=== PATIENT | male | born 1935 | race Native Hawaiian/Other Pacific Islander ===

== ENCOUNTER → 2016-05-13 16:46 | Emergency (ER) | payer MEDICARE ==
[2014-02-06 15:47] LABS: Eosinophils % (Auto) 2.5 % (0.0-4.3); Hematocrit 48.3 % (35.5-45.6); Hemoglobin 16.6 gm/dl (11.8-15.2); Mean Corpuscular HGB Conc 34 % (32-34); Mean Corpuscular Hemoglobin 32 pg (28-32); Mean Corpuscular Volume 95 fl (84-94); Red Blood Count 5.11 M/mm3 (3.65-5.03); Red Cell Distribution Width 13.3 % (13.2-15.2); White Blood Count 8.4 K/mm3 (4.5-11.0)
[2014-02-06 16:09] LABS: Anion Gap 10 mmol/L; BUN/Creatinine Ratio 15.83; Blood Urea Nitrogen 19 mg/dL (9-20); Calcium 9.1 mg/dL (8.4-10.2); Carbon Dioxide 26 mmol/L (22-30); Chloride 103 mmol/L (98-107); Creatine Kinase 57 units/L (55-170); Creatine Kinase MB 1.3 ng/mL (0.0-4.0); Glucose 170 mg/dL (75-100); Sodium 135 mmol/L (137-145)
[2014-02-06 16:10] LABS: Platelet Count 173 K/mm3 (140-440)
[2014-02-06 16:52] LABS: Potassium 3.7 mmol/L (3.6-5.0)
--- NOTE | 2014-02-06 20:47 | Emergency Department Report ---
HPI - HPI HPI: CHIEF COMPLAINT: CP HPI: 78 yo M w/ PMx HTN, pacemaker (helen heart), presents to the ED c/o CP that radiates to R arm and L shoulder for 1 week. States CP free now. Worse in last 2 days. Worse with exertion. Feels like pressure and SOB with exertion. Denies cough, fevers/chills. States also LUQ abdominal pain. Denies NVD. Admits to mild CLAROS. Denies palpitations. MODE OF ARRIVAL: Car SOURCE: Pt and BEGAN: 1 week ago DURATION: 1 week CONTEXT: SOB/CP QUALITY: Heavy SEVERITY: Severe IMPROVED WITH: rest WORSENED WITH: time ASSOCIATED SIGNS AND SYMPTOMS:see above ED Past Medical Hx - Past Medical History Previous Medical History?: Yes Hx Hypertension: Yes - Surgical History Past Surgical History?: Yes Hx Pacemaker: Yes - Social History Smoking Status: Never Smoker Substance Use Type: None - Medications Home Medications: Home Medications Medication Instructions Recorded Confirmed Type Carvedilol [Coreg] 3.125 mg PO DAILY 02/06/14 02/06/14 History Losartan [Cozaar] 50 mg PO DAILY 02/06/14 02/06/14 History ED Review of Systems ROS: Stated complaint: CHEST AND SHOULDER PAIN Other details as noted in HPI Comment: All other systems reviewed and negative Constitutional: denies: chills, fever Eyes: denies: vision change, eye redness ENT: denies: throat pain, rhinorrhea Respiratory: denies: cough, admits: shortness of breath Cardiovascular: denies: palpitations admits:chest pain Gastrointestinal: denies: abdominal pain, vomiting Genitourinary: denies: dysuria, hematuria Musculoskeletal: denies: arthralgia, muscle cramps Skin: denies: rash, bruising Neurological: denies:focal neurological deficits admits: headache Psychiatric: denies: depression, SI, HI Physical Exam - Physical Exam Vital Signs: Vital Signs 02/06/14 02/06/14 14:50 20:40 Temperature 98.6 F 98.4 F Pulse Rate 81 64 Respiratory 20 18 Rate Blood Pressure 117/76 140/68 [Right] O2 Sat by Pulse 96 97 Oximetry Physical Exam: -General Limitations: No Limitations General appearance: alert, in no apparent distress - Head Head exam: atraumatic, normocephalic - Eye Eye exam: normal appearance, EOMI, PERRLA No scleral icterus No conjunctival injection - ENT ENT exam: mucous membranes moist No rhinorrhea No oropharyngeal erythema/exudate - Neck Neck exam: normal inspection, full ROM No meningismus - Respiratory Respiratory exam: normal lung sounds bilaterally. Absent: respiratory distress No wheezes, rales or rhonchi - Cardiovascular Cardiovascular Exam: regular rate, normal rhythm, normal heart sounds Peripheral pulses WNL - GI/Abdominal GI/Abdominal exam: soft, bowel sounds WNL. Absent: tenderness - Extremities Exam Extremities exam: normal inspection, full ROM, warm and well perfused - Back Exam Back exam: normal inspection, full ROM - Neurological Exam Neurological exam: alert, oriented X3, normal bilateral upper extremity strength and sensation No focal deficits - Psychiatric Psychiatric exam: normal affect, normal mood - Skin Skin exam: intact, normal color No erythema No ecchymosis ED Course Vital Signs 02/06/14 02/06/14 14:50 20:40 Temperature 98.6 F 98.4 F Pulse Rate 81 64 Respiratory 20 18 Rate Blood Pressure 117/76 140/68 [Right] O2 Sat by Pulse 96 97 Oximetry ED Medical Decision Making - Lab Data Result diagrams: 02/06/14 15:01 02/06/14 15:01 - EKG Data -: EKG Interpreted by Me EKG shows normal: sinus rhythm Rate: tachycardia - EKG Data When compared to previous EKG there are: changes noted Interpretation: nonspecific ST-T wave sarah 02/06/14 20:50 now stach @ 138, LAD, LBBB old when compared 03/31 - Medical Decision Making HR was in 130s for EKG, now in 60s. Has elevated trop. Could be demand. Unsure why HR so elevated, denies history of afib. Will check CT at this time, CXr, repeat trop. If no dissection will give asa and admit to hospital. Ct neg for dissection or PE. Will place on heparin drip, give apap and admit at this time. Critical care attestation.: If time is entered above; I have spent that time in minutes in the direct care of this critically ill patient, excluding procedure time. ED Disposition Clinical Impression: Chest pain, Non-ST elevation (NSTEMI) myocardial infarction Disposition: OP ADMITTED IP TO THIS HOSP Is pt being admited?: Yes Does the pt Need Aspirin: No (already received) Condition: Good Time of Disposition: 23:07
[2014-02-06 21:14] LABS: Creatine Kinase MB 2.1 ng/mL (0.0-4.0)
[2014-02-06 21:23] LABS: Magnesium 1.9 mg/dL (1.7-2.3); Phosphorous 2.8 mg/dL (2.5-4.5)
[2014-02-06 22:32] LABS: INR 0.91 (0.87-1.13)
--- NOTE | 2014-02-06 22:54 | Cat Scan Report ---
PROCEDURE: CT ANGIOGRAM OF THE CHEST FOR PULMONARY EMBOLISM TECHNIQUE: Computerized axial tomographic angiography of the chest and pulmonary arteries was performed during the IV injection of iodinated nonionic contrast. The image data was postprocessed using maximum intensity projection (MIP) and 2-dimensional multiplanar reformatted (MPR) techniques. The examination is specifically tailored to the evaluation of the pulmonary arteries per clinical request. CPT 36562 HISTORY: Short of breath 786.09, chest pain 786.50 , CP RADIATING TO BACK AND SOB COMPARISONS: None. FINDINGS: Pulmonary outflow track Right and Left main pulmonary arteries : Clear, no filling defects seen to suggest Pulmonary Embolus. Pericardium: No significant effusion is visualized. Pacemaker is implanted in the LEFT side of the chest. Cardiac leads are visualized in the RIGHT side of the heart. Thoracic aorta: No evidence of aneurysmal dilatation or dissection. Coronary arteries: Are partially calcified indicating Coronary Artery disease. ] Mediastinum and Hilar regions: No pathologically enlarged lymph nodes or masses are identified. Lung [place]: There is a densely calcified benign appearing nodule visualized in the superior segment of the RIGHT lower lobe posteriorly suggesting prior granulomatous disease. There appears to be a small amount of surrounding fibrosis. Small amount of dependent atelectasis is seen. No acute infiltrates or effusions are identified. Upper Abdomen: No focal abnormalities are seen. Other: None. IMPRESSION: NO EVIDENCE OF PULMONARY EMBOLUS. PRIOR GRANULOMATOUS DISEASE. PACEMAKER IN PLACE. ATHEROSCLEROSIS CORONARY ARTERIES. ws:[id number] Electronically Signed By Matt Mcnally M.D. on 2014-02-06 21:49 DILCIA
--- NOTE | 2014-02-07 01:39 | History and Physical Report ---
History of Present Illness Date of admission: 02/07/14 00:33 Chief complaint: Chest pain History of present illness: PATIENT AND ARE AND DOES NOT SPEAK [place]. I HAVE INTERMEDIATE PROFICIENCY IN [place] AND OBTAINED HISTORY MOSTLY FROM WHO KNEW VERY LITTLE [place]. HISTORY IS LIMITED!!! 78 male with HTn who apparently has had chest pain x 4 days that is mid sternal , radiating to back and both arms. He denies sob, nausea, vomiting, diaphoresis with the chest pain. He states that the pain gets worse at night and he feels a pulling sensation in the front of his chest , near his left flank area. He states she had his pacemaker last checked in October and there were no issues. He sates that his chest pain has now improved a little bit. He denies fevers, cough, sick contacts, palpitations, syncope. he recently traveled to [place] 1 month ago. Past History Past Medical History: hypertension Past Surgical History: Other (Pacemaker) Social history: , other (Does not speak Urdu). denies: smoking, alcohol abuse, prescription drug abuse, IV drug use Family history: no significant family history Medications and Allergies Allergies Allergy/AdvReac Type Severity Reaction Status Date / Time No Known Allergies Allergy Verified 02/06/14 23:01 Home Medications Medication Instructions Recorded Confirmed Type Carvedilol [Coreg] 3.125 mg PO DAILY 02/06/14 02/06/14 History Losartan [Cozaar] 50 mg PO DAILY 02/06/14 02/06/14 History Active Meds: Compliant Review of Systems Constitutional: no fever, no chills, no sweats Ears, nose, mouth and throat: no headache, no vertigo Cardiovascular: chest pain, high blood pressure, no palpitations, no edema, no syncope, no lightheadedness, no shortness of breath, no leg edema Respiratory: congestion (??), no cough, no shortness of breath, no dyspnea on exertion Gastrointestinal: no abdominal pain, no nausea, no vomiting Genitourinary Male: no dysuria Musculoskeletal: shooting arm pain (Bilateral), low back pain, no neck stiffness , no neck pain Neurological: no syncope, no vertigo, no headaches Psychiatric: no anxiety, no memory loss Endocrine: no excessive sweating Hematologic/Lymphatic: no easy bleeding Allergic/Immunologic: no allergic rhinitis, no wheezing, no seasonal allergies Exam - Constitutional General appearance: Present: no acute distress, well-nourished - EENT Eyes: Present: PERRL, EOM intact ENT: hearing intact, clear oral mucosa, dentition normal - Neck Neck: Present: supple, normal ROM - Respiratory Respiratory effort: normal Respiratory: bilateral: CTA - Cardiovascular Rhythm: regular Heart Sounds: Present: S1 & S2 - Extremities Extremities: No edema, normal temperature - Abdominal General gastrointestinal: Present: soft, non-tender, non-distended, normal bowel sounds - Integumentary Integumentary: Present: clear, warm, dry - Musculoskeletal Musculoskeletal: strength equal bilaterally - Psychiatric Psychiatric: appropriate mood/affect, intact judgment & insight, memory intact, cooperative - Neurologic Neurologic: CNII-XII intact, no focal deficits, moves all extremities Results - Labs CBC & Chem 7: 02/06/14 15:01 02/06/14 15:01 Assessment and Plan - Patient Problems (1) NSTEMI (non-ST elevated myocardial infarction) Current Visit: Yes Status: Acute Plan to address problem: Heparin gtt Asa, plavix load, bb, arb, statin, morphine, nitrates, oxygen Cards consult for cath (2) Hypertension Current Visit: Yes Status: Chronic Plan to address problem: Continue home meds (3) DVT prophylaxis Current Visit: Yes Status: Acute Plan to address problem: Scds Heparin gtt
--- NOTE | 2014-02-07 01:42 | Cat Scan Report ---
PROCEDURE: CT ANGIOGRAM OF THE ABDOMEN AND PELVIS TECHNIQUE: Computerized axial tomographic angiography of the abdomen and pelvis was performed after the IV injection of iodinated nonionic contrast. The image data was postprocessed using 2-dimensional multiplanar reformatted (MPR) and 3-dimensional (MIP and/or volume rendered) techniques. CPT 68546 HISTORY: Abdominal pain, chest pain shoulder pain COMPARISONS: None. FINDINGS: Abdominal aorta: Normal caliber. No dissection or aneurysm. Minimal atherosclerosis. Celiac artery: Normal. Superior mesenteric artery: Normal. Left renal artery: Normal. Right renal artery: Normal. Inferior mesenteric artery: Normal. Common iliacs: There is slight tortuosity of the common iliac arteries with mild ectasia on the LEFT. External iliacs: Normal. Internal iliacs: Normal. Hypervascular masses: None. Abdominal and pelvic viscera: There are bilateral renal cortical cysts the largest on the LEFT measures 2.5 cm. The largest on the RIGHT measures 2.5 cm. No hydronephrosis. No evidence of intestinal obstruction. Moderate diverticulosis of the lower colon. Other: There is a large fat-containing LEFT inguinal hernia. The prostate gland is enlarged and contains multiple calcifications. . IMPRESSION: THE VASCULATURE IS NORMAL FOR AGE. MODERATE ATHEROSCLEROSIS OF THE AORTA IS IDENTIFIED. THERE IS SOME TORTUOSITY AND ECTASIA OF THE LEFT COMMON ILIAC ARTERY. NO EVIDENCE OF ANEURYSM OR STENOSIS OF THE ABDOMINAL VASCULATURE. DIVERTICULOSIS OF THE LOWER COLON. NO EVIDENCE OF INTESTINAL OR URINARY TRACT OBSTRUCTION. BILATERAL RENAL CORTICAL CYSTS ARE NOTED. LARGE FAT-CONTAINING LEFT INGUINAL HERNIA. ws:SANTOS Electronically Signed By Kasey Burton D.O. on 2014-02-07 00:35 DILCIA
[2014-02-07 02:19] LABS: Creatine Kinase MB 2.2 ng/mL (0.0-4.0)
[2014-02-07] MEDS: PEPCID PO SCH ×2 (05:41→14:49)
[2014-02-07 06:13] LABS: Creatine Kinase MB 1.8 ng/mL (0.0-4.0)
--- NOTE | 2014-02-07 08:42 | Consultation ---
History of Present Illness Consult date: 02/07/14 Requesting physician: CESAR PANIAGUA Consult reason: abnormal cardiac enzymes History of present illness: Mr. Stevens is a 78 year old male with a history of HTN, non-ischemic cardiomyopathy, pacemaker who presented with complaints of epigastric pain and back pain over the last one week. He states the pain has gotten worse over the last 2 days. He also complains of headache. He denies chest pain, shortness of breath, nausea, vomiting, palpitations or diaphoresis. Troponin level is mildly elevated, 0.097, 0.306, 0.766, 0.928. CK and CK-MB negative. Chest CTA negative for PE. CT of the abdomen and pelvis showed diverticulosis of the lower colon, large inguinal hernia. He had a cardiac cath in 08/2010 which revealed normal coronaries. He also had a negative stress test in 03/2012. Echo done 09/2013 showed EF 30-35%. Past History Past Medical History: hypertension Past Surgical History: hernia repair, Other (Pacemaker) Social history: . denies: smoking, alcohol abuse, prescription drug abuse, IV drug use Family history: no significant family history Medications and Allergies Allergies Allergy/AdvReac Type Severity Reaction Status Date / Time No Known Allergies Allergy Verified 02/06/14 23:01 Home Medications Medication Instructions Recorded Confirmed Type Carvedilol [Coreg] 3.125 mg PO DAILY 02/06/14 02/06/14 History Losartan [Cozaar] 50 mg PO DAILY 02/06/14 02/06/14 History Review of Systems Constitutional: no fever, no chills Ears, nose, mouth and throat: no nasal congestion, no nasal discharge, no sinus pressure, no sinus pain Cardiovascular: no chest pain, no orthopnea, no palpitations, no shortness of breath Respiratory: no cough, no shortness of breath, no dyspnea on exertion Gastrointestinal: abdominal pain, no nausea, no vomiting, no diarrhea Genitourinary Male: no dysuria, no hematuria Musculoskeletal: other (back pain), no neck stiffness, no neck pain Integumentary: no rash, no pruritis Neurological: headaches, no parathesias, no numbness, no tingling Endocrine: no cold intolerance, no heat intolerance Hematologic/Lymphatic: no easy bruising, no easy bleeding Physical Examination Vital Signs Temp Pulse Resp BP Pulse Ox 98.6 F 81 20 117/76 96 02/06/14 14:50 02/06/14 14:50 02/06/14 14:50 02/06/14 14:50 02/06/14 14:50 General appearance: no acute distress HEENT: Positive: PERRL, Normocephaly, Mucus Membranes Moist Neck: Positive: neck supple, trachea midline Cardiac: Positive: Reg Rate and Rhythm, S1/S2 Lungs: Positive: clear to auscultation Neuro: Positive: Grossly Intact Abdomen: Positive: Soft, Active Bowel Sounds, Tender Skin: Positive: Clear. Negative: Rash Musculoskeletal: Normal Range of Motion Extremities: Present: normal. Absent: edema Results 02/06/14 15:01 02/06/14 15:01 Cardiac Enzymes 02/07/14 02/07/14 Range/Units 01:14 05:17 CK-MB (CK-2) 2.2 1.8 (0.0-4.0) ng/mL Troponin I 0.766 H D 0.928 H D (0.000-0.045) ng/mL Lipids 02/07/14 Range/Units 01:14 Triglycerides 81 (2-149) mg/dL Cholesterol 190 (50-199) mg/dL HDL Cholesterol 35 L (40-59) mg/dL Cholesterol/HDL Ratio 5.42 % - Imaging and Cardiology Echo: report reviewed (09/2013-EF 30-35%) EKG: image reviewed EKG interpretations - Telemetry EKG Rhythm: Sinus Rhythm - EKG Sinus rhythms and dysrhythmias: sinus rhythm Supraventricular dysrhythmia: atrial premature complexe AV and intraventricular conduction: left bundle branch block Assessment and Plan abdominal pain elevated troponin CK, CK-MB negative normal coronaries per cath 08/2010 obtain Lexiscan thallium stress test non-ischemic cardiomyopathy EF 30-35% per echo 09/2013 currently compensated continue coreg, cozaar tachy-talon syndrome s/p pacemaker HTN - Patient Problems (1) Abdominal pain Current Visit: Yes Status: Acute (2) Elevated troponin Current Visit: Yes Status: Acute (3) Non-ischemic cardiomyopathy Current Visit: Yes Status: Chronic (4) 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
[2014-02-07] MEDS: NITRO-BID 2% TP SCH ×4 (09:53→14:57)
--- NOTE | 2014-02-07 10:43 | XRay Report ---
CHEST ONE VIEW: INDICATION: Chest pain. COMPARISON: 04/16/2012. FINDINGS: Portable, single, frontal chest radiograph demonstrates stable, grossly normal cardiomediastinal silhouette and clear lungs, given the inspiration. Left sided pacemaker with dual-chamber leads again noted as also few bony degenerative changes. CONCLUSION: No acute disease in the chest or significant interval change, as described. Thank you for the opportunity to participate in this patient's care.
--- NOTE | 2014-02-07 15:08 | Nuclear Perfusion Study ---
Stress Test Stress Test Conclusion: There was a normal heart rate response, with a normal blood pressure response. Symptoms noted during stress include: flushing. The test was terminated due to completion of vasodilator infusion. Conclusions No chest pain No evidence of Ischemia in EKG Ventricular Pecemaker Rhythm Nuclear images pending Dictated by: Nita Tomas M.D. History of: Hypertension No known allergies Most Recent Prior Cardiac Testing : * Exercise Stress Test on 10/07/2013. * Diagnostic Cath on 09/01/2010. Medications I : * See chart Baseline ECG: Normal sinus rhythm. First degree AV-block. Ventricular premature contractions Ventricular pacemaker, Abnormal ECG Pharmacologic Protocol: The patient was unable to exercise due to pacer/AICD. A 400 mcg dose of Regadenoson was administered by intravenous bolus injection. Hemodynamics Rest Stress Recovery SBP 160 mmHg 160 mmHg 145 mmHg DBP 73 mmHg 84 mmHg 73 mmHg HR = 67 bpm 81 bpm 70 bpm %MPHR 56 %
--- NOTE | 2014-02-07 15:15 | Nuclear Perfusion Study ---
Nuclear Nuclear Cardiology Conclusion: regadenoson myocardial perfusion with thallium-201 and Tc-99m tetrofosmin imaging. Global left ventricular systolic function was , with an EF of 43%. Conclusions 1.Large size partially reversible inferior wall perfudion defect of moderate severity. 2.Small fixed apical defect of mild to moderate severity. 3.Mild to moderate global LV Hypokinesia. 4.MIld to moderate global LV systolic dysfunction with LVEF around 43%. Imaging Protocol: This was a gated SPECT myocardial perfusion imaging study. A one day rest-stress imaging protocol was followed. A one day rest(thallium-20l)/stress(Tc-99m tetrofosmin) dual radionuclide imaging protocol was followed. For the rest portion of the study, 4 mCi of the radiopharmaceutical was administered. For the stress portion of the study, 26 mCi was administered. Perfusion Interpretation: TID Ratio 1.14. There was a medium, partially reversible defect in the mid anteroseptal, apical septal, apex segment(s). The extent of this perfusion defect was moderate. There was a small, reversible defect in the mid inferolateral segment(s). The extent of this perfusion defect was mild. There was a medium, partially reversible defect in the mid inferoseptal, mid inferior, apical inferior segment(s). The extent of this perfusion defect was moderate. Wall Motion Interpretation: Gated imaging under post-stress conditions demonstrated mild hypokinesis of the apical inferior segment(s); moderate hypokinesis of the basal inferoseptal, apical lateral segment(s); severe hypokinesis of the basal anteroseptal, mid inferoseptal, apical anterior, apex segment(s); akinesis of the mid anteroseptal, apical septal segment(s). The patient's calculated post stress LVEF was 43%. The patient's end diastolic volume was 172ml. The patient's end systolic volume was 98ml.
--- NOTE | 2014-02-07 16:30 | Progress Note ---
Assessment and Plan - Patient Problems (1) Abdominal pain Current Visit: Yes Status: Acute Plan to address problem: Epigastric pain. As per the patient this had been going on for a long time. Status post EGD 3 years ago which as per the patient and at a bedside was normal. Will start PPI and pain medication. (2) Chest pain Current Visit: Yes Status: Acute Plan to address problem: As per the patient has resolved. Troponin was elevated. Stress status seems to be abnormal. Echocardiogram pending. Awaiting reevaluation by cardiology. Continue present management. (3) DVT prophylaxis Current Visit: Yes Status: Acute Plan to address problem: Patient is currently on heparin drip. Continue SCD. (4) Elevated troponin Current Visit: Yes Status: Acute Plan to address problem: Management as per cardiology (5) Hypertension Current Visit: Yes Status: Chronic Plan to address problem: Elevated. Will restart carvedilol. (6) Non-ischemic cardiomyopathy Current Visit: Yes Status: Chronic Plan to address problem: Asymptomatic. Patient is currently on ARB and beta moustapha. History Interval history: 78-year-old male admitted for evaluation of chest pain and an abdominal pain. Chest pain as per the patient has resolved. Currently has epigastric pain. Positive history of nausea but no vomiting. No shortness of breath and palpitation. No dizziness, no blurring of vision and no headache. Hospitalist Physical - Physical exam Narrative exam: Awake, alert and oriented 3. In mild to moderate pain distress. Afebrile, no tachycardia and no tachypnea. - Constitutional Vitals: Vital Signs - 24 hr 02/07/14 02/07/14 02/07/14 01:00 02:00 03:00 Temperature 98.6 F Pulse Rate 64 64 58 L Pulse Rate [ 64 From Monitor] Respiratory 16 18 17 Rate Blood Pressure Blood Pressure 143/76 121/72 127/63 [Right] O2 Sat by Pulse 96 100 96 Oximetry 02/07/14 02/07/14 02/07/14 04:00 05:00 06:00 Temperature 98.7 F Pulse Rate 64 64 65 Pulse Rate [ From Monitor] Respiratory 20 18 18 Rate Blood Pressure Blood Pressure 135/69 139/70 146/81 [Right] O2 Sat by Pulse 96 95 95 Oximetry 02/07/14 02/07/14 02/07/14 08:00 10:32 10:45 Temperature 98.2 F Pulse Rate 78 67 69 Pulse Rate [ From Monitor] Respiratory 20 Rate Blood Pressure 160/73 160/84 Blood Pressure 156/63 [Right] O2 Sat by Pulse 98 Oximetry 02/07/14 02/07/14 02/07/14 10:46 10:47 10:48 Temperature Pulse Rate 79 79 75 Pulse Rate [ From Monitor] Respiratory Rate Blood Pressure 145/73 150/74 139/69 Blood Pressure [Right] O2 Sat by Pulse Oximetry 02/07/14 02/07/14 02/07/14 10:49 10:50 14:48 Temperature Pulse Rate 73 70 63 Pulse Rate [ From Monitor] Respiratory Rate Blood Pressure 150/73 152/69 164/77 Blood Pressure [Right] O2 Sat by Pulse Oximetry 02/07/14 02/07/14 02/07/14 14:49 14:54 14:57 Temperature Pulse Rate 63 63 63 Pulse Rate [ From Monitor] Respiratory Rate Blood Pressure 164/77 164/77 164/77 Blood Pressure [Right] O2 Sat by Pulse Oximetry - Respiratory Respiratory effort: normal Respiratory: bilateral: other (good air entry.) - Cardiovascular Rhythm: regular Heart Sounds: Present: S1 & S2 - Extremities Extremities: No edema - Abdominal General gastrointestinal: tender, normal bowel sounds Localized gastrointestinal: tender: epigastric periumbilical (mild to moderate.) - Psychiatric Psychiatric: appropriate mood/affect, cooperative - Neurologic Neurologic: moves all extremities - Labs CBC & Chem 7: 02/06/14 15:01 02/06/14 15:01 Labs: Abnormal lab results 02/07/14 02/07/14 Range/Units 01:14 05:17 Total Creatine Kinase 48 L 49 L (55-170) units/L CK-MB (CK-2) Rel Index 4.5 H (0-4) Troponin I 0.766 H D 0.928 H D (0.000-0.045) ng/mL LDL Cholesterol Direct 139 H (50-130) mg/dL HDL Cholesterol 35 L (40-59) mg/dL
[2014-02-07 16:31] LABS: Creatine Kinase MB 2.6 ng/mL (0.0-4.0)
--- NOTE | 2014-02-07 18:38 | Discharge Summary ---
Providers - Providers Date of Admission: 02/07/14 00:33 Date of discharge: 02/07/14 Attending physician: CESAR PANIAGUA 02/07/14 05:22 Consult to Physician [CONS] Urgent Consulting Provider: CARLOS KIRAN Reason For Exam: nstemi Place consult to:: answering service Notified:: yes Phone number called:: [phone] Was contact made?: No Time called:: 06:39 Comment:: consult called Hospitalization Reason for admission: Abdominal pain/chest pain. Condition: Stable Hospital course: Seen and examined at bedside today. Vital signs stable. Hospital course: Patient was admitted for evaluation of her chest pain and abdominal pain though patient denied ever having chest pain but abdominal pain. As per the patient the abdominal pain is presently mild. Patient was also found to have elevated troponin. Cardiology consult was called and stress test done which as per cardiology was abnormal but may be artifact. Discussed with nurse practitioner louisa and Dr. Hamlin from [facility] and as per our discussion they recommended for the discharge of the patient since the patient had a normal cardiac catheterization in 2010. Patient is also one of the patient's of the [facility] physicians Dr. Orozco. As per [facility], patient should follow-up with Dr. Orozco in 1 week. Patient will also follow up with his primary medical doctor in 3-5 days for evaluation of the epigastric pain since he recently had EGD which as per the patient and his at the bedside was normal. Patient was already on ARB and beta moustapha. Will add pantoprazole 40 mg by mouth daily. I will note here that patient did not have NSTEMI as per cardiology. Medications reconciled. Time spent coordinating the discharge of this patient was about 35 minutes. Disposition: DISCHARGED TO HOME OR SELFCARE - Discharge Diagnoses (1) Abdominal pain Status: Acute (2) Chest pain Status: Inactive (3) DVT prophylaxis Status: Acute (4) Elevated troponin Status: Acute (5) Hypertension Status: Chronic (6) Non-ischemic cardiomyopathy Status: Chronic Core Measure Documentation - Palliative Care Palliative Care/ Comfort Measures: Not Applicable - Core Measures Any of the following diagnoses?: none (patient did not have NSTEMI as per cardiology.) Plan Activity: advance as tolerated Diet: low fat, low cholesterol, low salt Additional Instructions: Follow-up with primary medical doctor in 3-5 days. Follow up with: MARGIE OROZCO MD [Staff Physician] - 7 Days Prescriptions: Carvedilol [Coreg] 3.125 mg PO BID #60 tablet Losartan [Cozaar] 50 mg PO DAILY #30 tablet Pantoprazole [Protonix] 40 mg PO QDAY #30 tablet
--- NOTE | 2014-02-07 19:41 | Echocardiography Report ---
Transthoracic Echocardiogram Indication: CHEST PAIN (786.50) BP: 139/70 Conclusions *Global left ventricular systolic function is moderate to severely decreased. *The estimated ejection fraction is 30-35%. *There is an E to A reversal in the mitral valve flow pattern suggestive of diastolic dysfunction. *There is trace of mitral regurgitation. *There is mild tricuspid regurgitation. *The right ventricular systolic pressure is calculated at 31 mmHg. *There is a minimial pericardial effusion. Findings Technical Comments: The study quality is good. Left Ventricle: Moderate global hypokinesis of the left ventricle is observed. Global left ventricular systolic function is moderate to severely decreased. The estimated ejection fraction is 30-35%. There is an E to A reversal in the mitral valve flow pattern suggestive of diastolic dysfunction. Left Atrium: The left atrium is normal in size with no visual thrombus identified. Right Ventricle: The right ventricular chamber size and systolic function are within normal limits. Right Atrium: The right atrium appears normal. Aortic Valve: The aortic valve is trileaflet. The leaflets are thin with normal excursion. There is no aortic stenosis or regurgitation present. Mitral Valve: The mitral valve appears normal in structure and function. There is trace of mitral regurgitation. Tricuspid Valve: The tricuspid valve appears normal in structure and function. There is mild tricuspid regurgitation. The right ventricular systolic pressure is calculated at 31 mmHg. Pulmonic Valve: The pulmonic valve appears normal in structure and function. Pericardium: The pericardium appears normal. There is a minimial pericardial effusion. No pleural effusion is present. Aorta: The aorta appears normal. Pulmonary Artery: The main pulmonary artery appears normal. Venous: The inferior vena cava appears normal in size. There is a greater than 50% respiratory change in the inferior vena cava dimension. Measurements Chambers MM Name Value Normal Range Ao root diameter (MM) 2.5 cm (2 - 3.7) LA dimension (AP) MM 4.1 cm (1.9 - 4) LA:Ao ratio (MM) 1.64 ratio - AV cusp separation (MM) 2.1 cm (1.5 - 2.6) Chambers 2D Name Value Normal Range RVIDd (AP) 2D 4.01 cm (0.9 - 2.6) IVSd (2D) 1.05 cm (0.6 - 1.1) LVPWd (2D) 1.21 cm (0.6 - 1.1) IVS:LVPW ratio (2D) 0.87 ratio - LVIDd (2D) 5.84 cm (3.7 - 5.6) LVIDs (2D) 4.9 cm (2 - 3.8) LV FS (Teichholz) (2D) 16.1 % - LV FS (cube) (2D) 16.1 % - EF Teichholz (2D) 33.1 % - Ao root diameter (2D) 2.5 cm (2 - 3.7) LA dimension (AP) 2D 3.9 cm (1.9 - 4) LA:Ao ratio (2D) 1.56 ratio - Volumes/Mass Name Value Normal Range LA ESV SP 4CH (MOD) 75 ml - LA ESV SP 2CH (MOD) 81 ml - LA ESV BP (MOD) 78 ml - LA ESV BP (MOD) index 39.6 ml/m2 - Diastolic/Systolic Function Name Value Normal Range MV E-wave Vmax 0.5 m/sec - MV deceleration time 444 msec - MV A-wave Vmax 0.9 m/sec - MV E:A ratio 0.6 ratio - LV lateral e' Vmax 0.04 m/sec - LV E:e' lateral ratio 12.5 ratio - Aortic Valve Name Value Normal Range AV VTI 29.5 cm - AV mean gradient 3 mmHg - LVOT diameter 2 cm - LVOT VTI 16.9 cm - LVOT mean gradient 1 mmHg - SV LVOT 53 ml - ROSSY (continuity VTI) 1.8 cm2 - Tricuspid Valve Name Value Normal Range TR Vmax 2.65 m/sec - TR peak gradient 28 mmHg - RAP 3 mmHg - RVSP 31 mmHg - Pulmonic Valve/Qp:Qs Name Value Normal Range PV Vmax 0.82 m/sec - PV peak gradient 3 mmHg - PV acceleration time 106 msec -
[2014-02-07 20:20] VITALS: BP 119/68
[~2016-05-13 16:46] MED LIST: BABY ASPIRIN ONE; BABY ASPIRIN PO ONE; BABY ASPIRIN PO SCH; COREG PO SCH; COZAAR PO SCH; CRESTOR PO SCH; D5W IV ONE; HEPARIN 10,000 UNITS/10 ML ONE; HEPARIN IV ONE; LEXISCAN IV ONE; MORPHINE IV PRN; NITRO-BID 2% TP ONE; NITROSTAT SL PRN; PEPCID ONE; PLAVIX ONE; PLAVIX PO ONE; PROTONIX PO SCH; SODIUM CHLORIDE FLUSH SYRINGE 10 ML IV PRN
== END | disposition home or self-care (01) ==
LOC: ED 02-06 14:40 → 4A 02-07 00:33 → UNDOADMIN 02-07 00:33 → ED 02-07 18:46 → 4A 02-07 20:17
DX: I21.4 Non-ST elevation (NSTEMI) myocardial infarction (principal); R07.9 Chest pain, unspecified
CPT/HCPCS: 36415; 71010; 71275; 74174; 78452; 80048; 80061; 82550; 82553; 83735; 83880; 84100; 84443; 84484; 85025; 85520; 85610; 85730; 93005; 93010; 93017; 93306; 96374; 99285; A9502; A9505; J1644; J2785; Q9967

== ENCOUNTER 2017-07-02 11:21 | Day surgery (SDC) | payer MEDICARE ==
[~2017-07-02 11:21] MED LIST changes: -BABY ASPIRIN ONE; -BABY ASPIRIN PO ONE; -BABY ASPIRIN PO SCH; -COREG PO SCH; -COZAAR PO SCH; -CRESTOR PO SCH; -D5W IV ONE; -HEPARIN 10,000 UNITS/10 ML ONE; -HEPARIN IV ONE; +IOPIDINE ONE; -LEXISCAN IV ONE; -MORPHINE IV PRN; +MYDRIACYL ONE; +NEOFRIN ONE; -NITRO-BID 2% TP ONE; -NITROSTAT SL PRN; -PEPCID ONE; -PLAVIX ONE; -PLAVIX PO ONE; -PROTONIX PO SCH; -SODIUM CHLORIDE FLUSH SYRINGE 10 ML IV PRN
[2017-07-02] MEDS ORDERED: IOPIDINE OD ONE (11:38)
[2017-07-02] MEDS ORDERED: NEOFRIN OD ONE (11:38)
[2017-07-02] MEDS ORDERED: MYDRIACYL OD ONE (11:38)
[2017-07-02 15:15] VITALS: BP 96/53
== END 2017-07-02 12:44 | disposition home or self-care (01) ==
LOC: OR 11:21
PROVIDERS: ATTEND Specialist
DX: H26.491 Other secondary cataract, right eye (principal); I10 Essential (primary) hypertension; E78.00 Pure hypercholesterolemia, unspecified; K21.9 Gastro-esophageal reflux disease without esophagitis; Z95.1 Presence of aortocoronary bypass graft